=== PATIENT | female | born 1990 | race Caucasian/White ===

== ENCOUNTER 2019-02-01 13:42 | Emergency (ER) | payer MEDICAID, OTHER ==
[~2019-02-01] VITALS: Ht 175.3 cm; Wt 83.5 kg
[2019-02-01 14:06] VITALS: BP 106/66
== END 2019-02-01 15:25 | disposition home or self-care (01) ==
LOC: ED 14:27
DX: S90.811A Abrasion, right foot, initial encounter (principal); W21.31XA Struck by shoe cleats, initial encounter; Y93.89 Activity, other specified; Y92.89 Other specified places as the place of occurrence of the external cause; Y99.8 Other external cause status
CPT/HCPCS: 99283